=== PATIENT | male | born 1940 | race Caucasian/White ===

== ENCOUNTER → 2025-06-25 08:10 | Outpatient (REF) | payer MEDICARE, BC, SELFPAY | LOC: WOUND 08:10 | PROVIDERS: ATTENDING PHYSICIAN Surgery; FAMILY PHYSICIAN Internal Medicine | DX: T81.31XA Disruption of external operation (surgical) wound, not elsewhere classified, initial encounter (principal); I72.9 Aneurysm of unspecified site; I25.10 Atherosclerotic heart disease of native coronary artery without angina pectoris; I73.9 Peripheral vascular disease, unspecified; I34.0 Nonrheumatic mitral (valve) insufficiency; N18.31 Chronic kidney disease, stage 3a; Y83.8 Other surgical procedures as the cause of abnormal reaction of the patient, or of later complication, without mention of misadventure at the time of the procedure | CPT/HCPCS: 11042; 99203 ==

== ENCOUNTER → 2025-07-05 08:57 | Outpatient (REF) | payer MEDICARE, BC, SELFPAY | LOC: WOUND 08:57 | PROVIDERS: ATTENDING PHYSICIAN Surgery; FAMILY PHYSICIAN Internal Medicine | DX: T81.31XA Disruption of external operation (surgical) wound, not elsewhere classified, initial encounter (principal); I72.9 Aneurysm of unspecified site; I25.10 Atherosclerotic heart disease of native coronary artery without angina pectoris; I73.9 Peripheral vascular disease, unspecified; I34.0 Nonrheumatic mitral (valve) insufficiency; N18.31 Chronic kidney disease, stage 3a; Y83.8 Other surgical procedures as the cause of abnormal reaction of the patient, or of later complication, without mention of misadventure at the time of the procedure | CPT/HCPCS: 11042 ==

== ENCOUNTER → 2025-07-16 08:55 | Outpatient (REF) | payer MEDICARE, BC, SELFPAY | LOC: WOUND 08:55 | PROVIDERS: ATTENDING PHYSICIAN Surgery; FAMILY PHYSICIAN Internal Medicine | DX: T81.31XA Disruption of external operation (surgical) wound, not elsewhere classified, initial encounter (principal); Y83.8 Other surgical procedures as the cause of abnormal reaction of the patient, or of later complication, without mention of misadventure at the time of the procedure; S31.109A Unspecified open wound of abdominal wall, unspecified quadrant without penetration into peritoneal cavity, initial encounter; I72.9 Aneurysm of unspecified site; I25.10 Atherosclerotic heart disease of native coronary artery without angina pectoris; I73.9 Peripheral vascular disease, unspecified; I34.0 Nonrheumatic mitral (valve) insufficiency; N18.31 Chronic kidney disease, stage 3a; Y84.8 Other medical procedures as the cause of abnormal reaction of the patient, or of later complication, without mention of misadventure at the time of the procedure | CPT/HCPCS: 99213 ==

== ENCOUNTER → 2025-07-26 09:24 | Outpatient (REF) | payer MEDICARE, BC, SELFPAY | LOC: WOUND 09:24 | PROVIDERS: ATTENDING PHYSICIAN Surgery; FAMILY PHYSICIAN Internal Medicine | DX: T81.31XA Disruption of external operation (surgical) wound, not elsewhere classified, initial encounter (principal); S31.109A Unspecified open wound of abdominal wall, unspecified quadrant without penetration into peritoneal cavity, initial encounter; Y83.8 Other surgical procedures as the cause of abnormal reaction of the patient, or of later complication, without mention of misadventure at the time of the procedure | CPT/HCPCS: 11042 ==

== ENCOUNTER → 2025-08-05 11:21 | Outpatient (REF) | payer MEDICARE, BC, SELFPAY | LOC: WOUND 11:21 | PROVIDERS: ATTENDING PHYSICIAN Surgery; FAMILY PHYSICIAN Internal Medicine | DX: T81.31XA Disruption of external operation (surgical) wound, not elsewhere classified, initial encounter (principal); S31.109A Unspecified open wound of abdominal wall, unspecified quadrant without penetration into peritoneal cavity, initial encounter; I72.9 Aneurysm of unspecified site; I25.10 Atherosclerotic heart disease of native coronary artery without angina pectoris; I73.9 Peripheral vascular disease, unspecified; I34.0 Nonrheumatic mitral (valve) insufficiency; N18.31 Chronic kidney disease, stage 3a; Y83.8 Other surgical procedures as the cause of abnormal reaction of the patient, or of later complication, without mention of misadventure at the time of the procedure; Y84.8 Other medical procedures as the cause of abnormal reaction of the patient, or of later complication, without mention of misadventure at the time of the procedure | CPT/HCPCS: 99213 ==

== ENCOUNTER → 2025-08-19 09:17 | Outpatient (REF) | payer MEDICARE, BC, SELFPAY | LOC: WOUND 09:17 | PROVIDERS: ATTENDING PHYSICIAN Surgery; FAMILY PHYSICIAN Internal Medicine | DX: T81.31XA Disruption of external operation (surgical) wound, not elsewhere classified, initial encounter (principal); S31.109A Unspecified open wound of abdominal wall, unspecified quadrant without penetration into peritoneal cavity, initial encounter; I72.9 Aneurysm of unspecified site; I25.10 Atherosclerotic heart disease of native coronary artery without angina pectoris; I73.9 Peripheral vascular disease, unspecified; I34.0 Nonrheumatic mitral (valve) insufficiency; N18.31 Chronic kidney disease, stage 3a; Y83.8 Other surgical procedures as the cause of abnormal reaction of the patient, or of later complication, without mention of misadventure at the time of the procedure; X58.XXXA Exposure to other specified factors, initial encounter | CPT/HCPCS: 99213 ==

== ENCOUNTER 2025-08-25 12:44 | Emergency (ER) | payer MEDICARE, BC, SELFPAY ==
[2025-08-25 12:49] VITALS: BP 119/63
--- NOTE | 2025-08-25 13:53 | ED.GENMED ---
History of Present Illness
General
Chief Complaint: Skin Surface Trauma
Source: patient and spouse
Time Seen by Provider: 08/25/25 13:30
History of Present Illness
History of Present Illness:
Note:
CHIEF COMPLAINT(S)
Lacerations and abrasions to the head and hands following a trauma incident with a board.
HISTORY OF PRESENT ILLNESS
The patient is an 85-year-old male who presented after sustaining trauma when a board fell on his head and hands during an incident at home. The patient described the board impacting him primarily on the head and hands, supporting himself with his
hands in what he described as 'one of these numbers.' He is currently on Apixaban (Eliquis) for anticoagulation following recent cardiovascular procedures. The fall resulted in a Y-shaped skin tear to the dorsal side of the right hand measuring
approximately eight centimeters and a small laceration on the left third digit at the paronychial area, which is well approximated (less than one centimeter). Additionally, the patient exhibited a small abrasion to the right forehead. The patients
recent medical history includes undergoing placement of three stents and a valve replacement around three weeks ago.
Additional historian
Spouse states that the wood fell and unfortunately caught him in the head.
PHYSICAL EXAM
General: Alert, no acute distress.
Skin: Y-shaped skin tear to the dorsal right hand approximately 8 cm, small laceration on the left third digit at the paronychia area (less than 1 cm, well approximated), small abrasion to the right forehead.
Head: Abrasion present on the right forehead. Pupils are equal and reactive.
Neurological: Normal neurological assessment.
Respiratory: No respiratory distress noted.
PLAN
1. Apply adhesive glue and mesh to the Y-shaped skin tear on the right hand to approximate the wound edges.
2. Apply adhesive glue directly to the laceration on the left third digit for closure, followed by wrapping.
3. Confirmed that the head scan was clear, and no further intervention was required for the head abrasion at this time.
4. Follow-up care as needed for wound assessment and monitoring of anticoagulation therapy, considering the patients recent cardiovascular history and anticoagulation regimen.
DIFFERENTIAL DIAGNOSIS
The Differential Diagnosis includes, in no particular order and is not limited to:
1. Contusion
2. Laceration
3. Abrasion
4. Fracture
5. Hematoma
6. Tendon injury
7. Joint dislocation
8. Soft tissue infection
9. Anticoagulation-related bleeding
10. Neurological injury
Disposition:
SUMMARY OF ENCOUNTER
The patient is an 85-year-old male on apixaban who presented after being struck on the head and hands by a falling piece of wood. During the emergency department visit, absence of intracranial hemorrhage was confirmed through a head scan. The
patient sustained two skin tears: one on the right hand repaired with adhesive glue (Dermabond) and mesh, and another on the left hand repaired with adhesive glue. Wound dressings were applied, and the patient is considered stable for outpatient
follow-up.
DISPOSITION
Discharge.
ASSESSMENT
The patient sustained a head impact and hand injuries with no evidence of intracranial hemorrhage. Skin tears on the right and left hand were appropriately managed with adhesive glue and mesh for the right hand tear.
PLAN
1. Allow outpatient follow-up with the wound care nurse for ongoing assessment and management of the skin tears.
2. Tetanus status needs to be clarified and updated if necessary.
3. Continue reviewing the role of anticoagulation therapy after recent cardiovascular interventions.
PATIENT EDUCATION AND COUNSELING
The patients spouse was advised on care for the dressings and the need for follow-up with a wound care nurse. Discussed potential risks given current anticoagulation therapy and advised to monitor for signs of increased bleeding.
FOLLOW-UP INSTRUCTIONS
The patient is advised to follow up with their primary care physician for tetanus status clarification and to ensure an ongoing evaluation by a wound care nurse.
MEDICATION RECONCILIATION
The patient is currently on apixaban following cardiovascular procedures.
MEDICAL DECISION MAKING
- Number and Complexity of Problems Addressed: Chronic conditions affecting care: Cardiovascular disease requiring anticoagulation therapy. Differential diagnoses considered include contusion, laceration, abrasion, fracture, hematoma, tendon injury,
joint dislocation, soft tissue infection, anticoagulation-related bleeding, and neurological injury.
- Data:
- Category 1: Confirmed absence of intracranial hemorrhage via head scan.
- Category 3: No discussions with outside providers documented.
-Risk: Consideration of Admission/Observation: Escalation of care including admission/observation was considered given the complexity and risk of the patients presenting complaint, exam findings, and underlying comorbidities. However, ultimately, I
feel the patient is safe for outpatient management with close follow-up. Reasoning: Work-up reassuring, does not reveal any acute life/organ-threatening processes, patients symptoms well-controlled upon reevaluation, reexamination is reassuring,
vitals are stable, patient agreeable with discharge, reliable for follow-up.
DIAGNOSIS
1. Contusion to head.
2. Laceration of right hand (ICD-10 Code S61.421A).
3. Laceration of left hand (ICD-10 Code S61.422A).
Past History
Past History
ED Past Medical History: Arrthythmia (Paroxysmal atrial fibrillation), CAD, GERD, HTN, Hypercholesterolemia and OR
ED Past Surgical History: Cholecystectomy, Orthopedic and Other (Hernia repair)
Social History
Tobacco: Former smoker
Phy Exam
Physical Exam
Physical Exam:
.
Course
Orders/Labs/Results
Orders:
Orders
08/25/25 12:52
CT Head W/o Iv Contrast Urgent
Comment:
Reason For Exam: injruy on thinners
Vital Signs
Initial and Last Documented VS:
Initial Vital Signs
Temp Pulse Resp BP Pulse Ox
98.5 F 61 16 119/63 98
08/25/25 12:49 08/25/25 12:49 08/25/25 12:49 08/25/25 12:49 08/25/25 12:49
Last Documented Vital Signs
Temp Pulse Resp BP Pulse Ox
98.5 F 61 16 119/63 98
08/25/25 12:49 08/25/25 12:49 08/25/25 12:49 08/25/25 12:49 08/25/25 12:49
Procedures
Laceration Closure
Right Hand:
Status of Wound: clean
Size of Wound in cm: 8
Description of Wound Edges: flap-well vascularized
Revision/Debridement: routine- no revision and irrigate-direct pressure
Wound exploration: explored to base- no FB
Type of Closure: Dermabond-skin glue
Additional information:
Mesh and Dermabond applied to the dorsal right with good results
Left Finger:
Status of Wound: clean
Size of Wound in cm: 1
Preparation: cleaned with saline
Revision/Debridement: irrigate-direct pressure
Wound exploration: explored to base- no FB
Type of Closure: Dermabond-skin glue
*Pulse Oximetry
SaO2: 98
Oxygen Mode of Delivery: Room air
Patient hypoxic: no
*Critical Care Note
Total Time (30-74mins, 75-104mins- exclusive of procedures): Not Applicable
Data Reviewed
Source: patient and spouse
ED Attending Note
-
Portions of this chart may have been created with voice recognition software.� Occasional wrong word or��sound alike� substitutions may have occurred due to the inherent limitations of voice recognition software.
Discharge Plan
Departure
Patient Disposition: Home (Routine Discharge)
Date of Disposition: 08/25/25
Time of Disposition: 13:55
Patient with high blood pressure during this ER visit?: No
Discharge Problem:
Minor head injury, Skin tear
Instructions: Laceration Repair With Glue (DC), Wound Care (DC), Head injury in adults
Prescriptions:
No Action
multivitamin [One Daily Multivitamin] 1 EACH tablet
1 ea PO DAILY
metoprolol succinate 100 MG tablet extended release 24 hr
100 mg PO QPM
tamsulosin 0.4 MG capsule
0.4 mg PO DAILY
pantoprazole 40 MG tablet,delayed release (DR/EC)
40 mg PO BID
ranitidine HCl [Zantac] 150 MG tablet
150 mg PO DAILY
hydrochlorothiazide 25 MG tablet
25 mg PO DAILY
cholecalciferol (vitamin D3) [Vitamin D3] 1,000 UNIT capsule
1,000 unit PO DAILY
Patient Comments:
'family MD stopped'
rosuvastatin 20 MG tablet
20 mg PO QPM
amlodipine-olmesartan [[place]] 1 EACH tablet
1 tab PO DAILY
Carafate
PRN PRN (Reason: unknown)
Patient Comments:
carafate liquid
Stool Softener
2 - 3 tab PO DAILY
Trilipix
135 mg PO DAILY
aspirin 325 MG tablet
325 mg PO DAILY
Referrals:
UNKNOWN - PT DOES,NOT KNOW [Family Provider]
Activity Restrictions/Additional Instructions:
Keep wound clean. Consider keeping wound wrapped to protect the skin glue while working or outside. Return immediately for redness, swelling, fevers. Skin glue will eventually flake off. Please consider having your wound care nurse reassess your
wounds
Interventions
Interventions:
*Risk Screen - Suicide Last Done: 08/25/25 12:49
*General Assessment Last Done: 08/25/25 13:30
*Neglect/Abuse Screening Last Done: 08/25/25 12:49
*ED- Fall Risk Assessment Last Done: 08/25/25 13:30
*ED COVID-19 Vaccine History Last Done: 08/25/25 13:30
*ED Influenza Vaccine History Last Done: 08/25/25 13:30
ED-Skin Assessment Last Done: 08/25/25 13:30
Discharge Date and Time
Print Language: MALAYSIAN
[2025-08-25 14:05] VITALS: BP 118/78
== END 2025-08-25 14:06 | disposition home or self-care (01) ==
LOC: EMR 12:44
PROVIDERS: EMERGENCY PHYSICIAN Emergency Medicine
DX: S00.81XA Abrasion of other part of head, initial encounter (principal); S61.411A Laceration without foreign body of right hand, initial encounter; S61.412A Laceration without foreign body of left hand, initial encounter; S00.93XA Contusion of unspecified part of head, initial encounter; W19.XXXA Unspecified fall, initial encounter; Y92.009 Unspecified place in unspecified non-institutional (private) residence as the place of occurrence of the external cause
CPT/HCPCS: 99284; 12004; 70450

== ENCOUNTER → 2025-09-02 11:25 | Outpatient (REF) | payer MEDICARE, BC, SELFPAY | LOC: WOUND 11:25 | PROVIDERS: ATTENDING PHYSICIAN Surgery; FAMILY PHYSICIAN Internal Medicine | DX: T81.31XA Disruption of external operation (surgical) wound, not elsewhere classified, initial encounter (principal); S31.109A Unspecified open wound of abdominal wall, unspecified quadrant without penetration into peritoneal cavity, initial encounter; S61.421A Laceration with foreign body of right hand, initial encounter; I73.9 Peripheral vascular disease, unspecified; I25.10 Atherosclerotic heart disease of native coronary artery without angina pectoris; I34.0 Nonrheumatic mitral (valve) insufficiency; N18.31 Chronic kidney disease, stage 3a; Y83.8 Other surgical procedures as the cause of abnormal reaction of the patient, or of later complication, without mention of misadventure at the time of the procedure; X58.XXXA Exposure to other specified factors, initial encounter | CPT/HCPCS: 99213 ==

== ENCOUNTER → 2025-09-10 09:21 | Outpatient (REF) | payer MEDICARE, BC, SELFPAY | LOC: WOUND 09:21 | PROVIDERS: ATTENDING PHYSICIAN Surgery | DX: T81.31XA Disruption of external operation (surgical) wound, not elsewhere classified, initial encounter (principal); Y83.8 Other surgical procedures as the cause of abnormal reaction of the patient, or of later complication, without mention of misadventure at the time of the procedure; S61.421A Laceration with foreign body of right hand, initial encounter; X58.XXXA Exposure to other specified factors, initial encounter; I72.9 Aneurysm of unspecified site; I25.10 Atherosclerotic heart disease of native coronary artery without angina pectoris; I73.9 Peripheral vascular disease, unspecified; I34.0 Nonrheumatic mitral (valve) insufficiency; N18.31 Chronic kidney disease, stage 3a | CPT/HCPCS: 99213 ==